=== PATIENT | female | born 1970 | race Caucasian/White ===

== ENCOUNTER 2017-01-27 15:44 | Emergency (ER) | payer OTHER ==
[~2017-01-27] VITALS: Ht 167.6 cm; Wt 110.2 kg
[~2017-01-27 15:44] MED LIST: NAPROSYN500 MG PO; NOHOMEMEDS; NORCO 7.5/321 TABLET PO; PERCOCET 5/31 TABLET PO; VALIUM2 MG PO; VALIUM5 MG PO
[2017-01-27] MEDS ORDERED: AUGMENTIN875 MG PO (16:50)
[2017-01-27 17:20] VITALS: BP 123/92
== END 2017-01-27 17:21 | disposition home or self-care (01) ==
LOC: EME 15:44
DX: S61.552A Open bite of left wrist, initial encounter (principal); S61.551A Open bite of right wrist, initial encounter; S61.250A Open bite of right index finger without damage to nail, initial encounter; W55.01XA Bitten by cat, initial encounter; E11.9 Type 2 diabetes mellitus without complications; F17.200 Nicotine dependence, unspecified, uncomplicated
CPT/HCPCS: 73110; 73140; 99281; 99283